=== PATIENT | female | born 1980 | race Caucasian/White ===

== ENCOUNTER 2020-03-23 03:12 | Observation (INO) | payer OTHER, SELFPAY ==
[2020-03-23] VITALS (25 sets, daily range): BP systolic 98–142; BP diastolic 55–87; PULSE 55–92; RESP 10–21; TEMP 36.4; O2SAT 94–100; BMI 39.6
--- NOTE | ~2020-03-23 | CT_ITS ---
EXAMINATION: CT abdomen pelvis w con DATE: 03/23/2020 04:26 INDICATION: Abdominal pain, nausea and vomiting TECHNIQUE: Computed tomography (CT) of the abdomen and pelvis was performed with 100 mL Omnipaque-350 intravenous contrast. Automated exposure control and iterative reconstruction technique were employe d. The dose-length product was 1290.19 mGy-cm. COMPARISON: 01/04/2017 FINDINGS: Lung bases are clear. Heart size is normal. No pericardial or pleural effusion. Focal hepatic steatos is at the ligamentum teres. Gallbladder, spleen, pancreas, bilateral adrenal glands and kidneys are n ormal. The appendix is fluid-filled and dilated to 9 mm with high density appendicolith in the more p roximal appendix. There is mild surrounding inflammatory stranding consistent with acute appendicitis . Minimal free fluid is seen extending along the right paracolic at the caudal tip of the liver. No a bscess or free intraperitoneal gas. Remainder of the bowels are normal. Bladder, anteverted uterus an d bilateral adnexa are unremarkable. No pathologically enlarged abdominal or pelvic lymphadenopathy. Mild lumbar and lower thoracic spondylosis. IMPRESSION: 1. Acute appendicitis. Dr. Emil White notified Dr. Keys of this findings at 4:52 AM on 03/23/2020. Reviewed, dictated and finalized at location A. CONTROL SUPERVISOR IMPRESSION: 1. Acute appendicitis. Dr. Emil White notified Dr. Keys of this findings at 4: 52 AM on 03/23/2020.
--- NOTE | 2020-03-23 03:15 | ED.ABDPAIN ---
HPI - Abdominal Pain General Chief Complaint: Abdominal Pain Stated Complaint: abdominal pain Time Seen by Provider: 03/23/20 03:15 Source: patient Mode of arrival: ambulatory Limitations: no limitations History of Present Illness HPI narrative: The patient is a 39 yo female who presents for evaluation of abdominal pain. Patient's pain began around midnight, mostly in center of the abdomen. Pain is now severe in nature with radiation into the right lower quadrant. She has had associated nausea and vomiting this morning. She denies fever, chills, diarrhea or constipation. No chest pain or dyspnea. No history of abdominal pain such as this. No history of abdominal surgeries. She denies dysuria or hematuria. Related Data Home Medications Medication Instructions Recorded Confirmed No Home Medications 03/23/20 03/23/20 Allergies Allergy/AdvReac Type Severity Reaction Status Date / Time TIDE DETERGENT Allergy Mild HIVES Uncoded 03/23/20 03:14 Review of Systems Review of Systems: Narrative: CONSTITUTIONAL: Denies fever, chills, or sweats. ENT: Denies rhinorrhea, congestion, sore throat, or otalgia. CARDIOVASCULAR: Denies chest pain, palpitations, or edema. RESPIRATORY: Denies cough or dyspnea. GASTROINTESTINAL: Reports abdominal pain, nausea and vomiting GENITOURINARY: Denies dysuria or hematuria. SKIN: Denies rash or itching. MUSCULOSKELETAL: Denies back pain, joint pain, or myalgia. NEUROLOGIC: Denies headache PMFSH Past Medical History Medical History Arthritis of left knee Patellar dislocation Social History Social History (Updated 03/23/20 @ 03:38 by Caridad Keys MD) Smoking status: Current every day smoker Tobacco type: cigarettes and e-cigarettes/vaping Substance use: never Gender identity (if verbalized by the patient): Female Exam Narrative: Exam Narrative: GENERAL: Awake, alert, conversant HEAD: Normocephalic, atraumatic. EYES: PERRLA and EOMI. ENT: Nares clear, no rhinorrhea or epistaxis. Mucous membranes moist. NECK: Supple. CHEST: No respiratory distress, breathing even and non labored HEART: Regular rate, sinus rhythm ABDOMEN:Obese, non distended, bowel sounds in all 4 quadrants, tender periumbilical area, positive right lower quadrant tenderness, no guarding, nonrigid EXTREMITIES: Normal range of motion. No edema. SKIN: Warm, dry, no rash. NEURO:No focal deficits. Alert and oriented x3 Course Vital Signs Vital signs: Vital Signs Temperature 36.4 C 03/23/20 03:20 Pulse Rate 74 03/23/20 03:20 Respiratory Rate 20 03/23/20 03:20 Blood Pressure 142/87 H 03/23/20 03:20 Pulse Oximetry 98 03/23/20 03:20 Temperature 36.4 C 03/23/20 03:20 Pulse Rate 74 03/23/20 03:20 Respiratory Rate 20 03/23/20 03:20 Blood Pressure 130/86 03/23/20 06:03 Pulse Oximetry 97 03/23/20 06:03 MDM - Abdominal Pain MDM Narrative Medical decision making narrative: Patient presented for evaluation of centralized abdominal pain, nausea and vomiting. At the time of assessment, ABCs are intact and vital signs are stable. Physical exam is notable for periumbilical tenderness as well as right lower quadrant tenderness. No rigidity. No guarding. No leukocytosis on laboratory studies. No electrolyte derangement. No UTI. CT scan is concerning for developing appendicitis with dilated appendix, stranding, appendicolith. No abscess or perforation. Patient was given IV Zosyn in the emergency department. Admitted to Dr. Latham with general surgery. Differential Diagnosis Differential diagnosis: Likely abdominal pain, acute appendicitis, diverticulitis, gastroenteritis and pancreatitis Lab Data Attestation: I reviewed the patient's lab results. Result diagrams: 03/23/20 03:26 03/23/20 03:26 Labs: Lab Results 03/23/20 03/23/20 03/23/20 Range/Units 03:26 03:26 04:59 WBC 6.2 (4.5-10.0) K/mm
[2020-03-23 03:30] LABS: Basophils Percent Auto 0.3 % (0.2-1.2); Eosinophils Absolute Auto 0.1 K/mm3 (0-0.3); Eosinophils Percent Auto 0.8 % (0-4.4); Hematocrit 41.6 % (37.0-47.0); Hemoglobin 13.6 g/dL (12.0-15.0); Immature Granulocyte Absolute 0.01 K/mm3 (0.00-0.031); Immature Granulocyte Percent A 0.2 % (0-0.5); Lymphocytes Percent Auto 30.6 % (18.3-44.2); Mean Corpuscular HGB Conc 32.7 g/dl (32-36); Mean Corpuscular Hemoglobin 26.5 pg (26-34); Mean Corpuscular Volume 80.9 fl (80-100); Mean Platelet Volume 9.5 fl (7.4-10.4); Monocytes Absolute Auto 0.1 K/mm3 (0.1-0.6); Monocytes Percent Auto 1.6 % (2.6-8.5); Neutrophils Absolute Auto 4.1 K/mm3 (1.3-6.7); Neutrophils Percent Auto 66.5 % (45.5-73.1); Platelet Count Result 273 k/mm3 (150-375); Red Blood Count 5.14 M/mm3 (4.2-5.4); Red Cell Distribution Width 14.7 % (11.5-14.5); White Blood Count 6.2 K/mm3 (4.5-10.0)
[2020-03-23 03:43] LABS: Alanine Aminotransferase 24 U/L (4-35); Albumin Level 4.3 g/dL (3.5-5.1); Alkaline Phosphatase 90 U/L (38-126); Anion Gap 9 mmol/L (8-16); Aspartate Amino Transferase 28 U/L (14-36); Bilirubin,Total 0.4 mg/dL (0.2-1.3); Blood Urea Nitrogen 7 mg/dL (7-17); Calcium 9.4 mg/dL (8.4-10.2); Carbon Dioxide 25 mmol/L (22-30); Chloride 103 mmol/L (98-107); Estimated CRCL calculation 163 ml/min; Estimated Glomerular Filt Rate > 60; Glucose 119 mg/dL (65-105); Lipase 48 U/L (23-300); Potassium 4.1 mmol/L (3.4-5.0); Sodium 137 mmol/L (137-145)
[2020-03-23] MEDS: DICYCLOMINE HCL INJ 20 MG/2 ML VIAL IM (03:43)
[2020-03-23] MEDS: ONDANSETRON INJ 4 MG/2 ML VIAL IV PUSH ×3 (03:44→10:43)
[2020-03-23] MEDS: SODIUM CHLORIDE 0.9% IV 1,000 ML 999 ML IV CONT (03:45)
[2020-03-23 05:18] LABS: Add Urine Microscopic? YES; Appearance Urine Clear (Clear); Bilirubin Urine Negative (Negative); Blood Urine 1+ (Negative); Color Urine Colorless (Yellow); Glucose Urine UA Negative (Negative); Ketones Urine Trace mg/dL (Negative); Leukocyte Esterase Ur Negative LEU/UL (Negative); Nitrate Urine Negative (Negative); Protein Urine Negative (Negative); Specific Grav Ur 1.027 (1.001-1.035); Squamous Epithelial Cell Urine Rare /hpf (Few); Urobilinogen Urine Negative mg/dL (<2.0); WBC Urine 0-3 /hpf
[2020-03-23] MEDS: SODIUM CHLORIDE 0.9% IV 1,000 ML 125 ML IV CONT (05:45)
[2020-03-23] MEDS: MORPHINE SULFATE (*CRX) 4 MG/ML INJ IV PUSH ×2 (06:00→08:12)
--- NOTE | 2020-03-23 06:43 | ADMGEN ---
This patient, Jeanne Gunter, was admitted to [facility]. Patient/family oriented to hospital policies and general routines including ID bracelet, bed and alarms, visiting hours, pain management, procedures, bathroom and other care routines, personal items, smoking policy, room service/diet, and visiting hours. Information on how to activate the Rapid Response Team has been discussed. Patient/Family are encouraged to report perceived risks to care and to ask questions if they do not understand what they are told or what they should do.
--- NOTE | 2020-03-23 06:57 | WPDANESEPP ---
Anes - Eval Pre Procedure Procedure: lap. appendectomy Date/Time: 03/23/20 06:57 Surgeon: daly Pre Op Diagnosis: Acute appendicitis Patient Data Age: 39 Gender: F Height: 1.7 m Weight: 115 kg Last Vital Signs Temp 36.4 C 03/23/20 03:20 Pulse 55 L 03/23/20 06:10 Resp 20 03/23/20 03:20 BP 130/86 03/23/20 06:03 Pulse Ox 97 03/23/20 06:03 Allergies Allergy/AdvReac Type Severity Reaction Status Date / Time TIDE DETERGENT Allergy Mild HIVES Uncoded 03/23/20 03:14 Home Medications Medication Instructions Recorded Confirmed Type No Home Medications 03/23/20 03/23/20 History Laboratory Tests 03/23/20 03/23/20 03/23/20 03:26 03:26 04:59 WBC 6.2 K/mm3 K/mm3 (4.5-10.0) RBC 5.14 M/mm3 M/mm3 (4.2-5.4) Hgb 13.6 g/dL g/dL (12.0-15.0) Hct 41.6 % % (37.0-47.0) MCV 80.9 fl fl (80-100) MCH 26.5 pg pg (26-34) MCHC 32.7 g/dl g/dl (32-36) RDW 14.7 % H % (11.5-14.5) Plt Count 273 k/mm3 k/mm3 (150-375) MPV 9.5 fl fl (7.4-10.4) Immature Gran % (Auto) 0.2 % % (0-0.5) Neut % (Auto) 66.5 % % (45.5-73.1) Lymph % (Auto) 30.6 % % (18.3-44.2) [place] % (Auto) 1.6 % L % (2.6-8.5) Eos % (Auto) 0.8 % % (0-4.4) Baso % (Auto) 0.3 % % (0.2-1.2) Lymph # (Auto) 1.90 K/mm3 K/mm3 (0.9-3.2) [place] # (Auto) 0.1 K/mm3 K/mm3 (0.1-0.6) Eos # (Auto) 0.1 K/mm3 K/mm3 (0-0.3) Baso # (Auto) 0.0 K/mm3 K/mm3 (0.0-0.1) Abs Immat Gran (auto) 0.01 K/mm3 K/mm3 (0.00-0.031) Absolute Neuts (auto) 4.1 K/mm3 K/mm3 (1.3-6.7) Absolute Nucleated RBC 0.0 K/mm3 K/mm3 (0.0-0.012) Nucleated RBC % 0.0 % % (0.0-0.2) Sodium 137 mmol/L mmol/L (137-145) Potassium 4.1 mmol/L mmol/L (3.4-5.0) Chloride 103 mmol/L mmol/L (98-107) Carbon Dioxide 25 mmol/L mmol/L (22-30) Anion Gap 9 mmol/L mmol/L (8-16) BUN 7 mg/dL mg/dL (7-17) Creatinine 0.50 mg/dL L mg/dL (0.7-1.0) Estim Creat Clear Calc 163 ml/min ml/min Estimated GFR > 60 (59 - ) Glucose 119 mg/dL H mg/dL (65-105) Calcium 9.4 mg/dL mg/dL (8.4-10.2) Total Bilirubin 0.4 mg/dL mg/dL (0.2-1.3) AST 28 U/L U/L (14-36) ALT 24 U/L U/L (4-35) Alkaline Phosphatase 90 U/L U/L (38-126) Total Protein 8.0 g/dL g/dL (6.3-8.2) Albumin 4.3 g/dL g/dL (3.5-5.1) Lipase 48 U/L U/L (23-300) Urine Color Colorless (Yellow) Urine Appearance Clear (Clear) Urine pH 7.0 (5.0-9.0) Ur Specific [place] 1.027 (1.001-1.035) Urine Protein Negative mg/dL mg/dL (Negative) Urine Glucose (UA) Negative mg/dL mg/dL (Negative) Urine Ketones Trace mg/dL mg/dL (Negative) Ur Blood (Man) 1+ H (Negative) Urine Nitrate Negative (Negative) Urine Bilirubin Negative (Negative) Urine Urobilinogen Negative mg/dL mg/dL (<2.0) Leukocyte Esterase Rfl Negative LYNDA/UL LYNDA/UL (Negative) Urine RBC 3-5 /hpf H /hpf (0-2) Urine WBC 0-3 /hpf /hpf Ur Squamous Epith Cells Rare /hpf /hpf (Few) Patient hx anesthesia problems: none Family hx anesthesia problems: none PMFSH Past Medical History Medical History Arthritis of left knee Patellar dislocation Family History Family History (Updated 03/23/20 @ 06:45 by Susan Hooper RN) Father Cerebrovascular accident COPD (chronic obstructive pulmonary disease) Mother Cancer, metastatic Social History Social History (Updated 03/23/20 @ 03:38 by Caridad Keys MD) Smoking status: C
--- NOTE | 2020-03-23 07:47 | P.PNAN_ITS ---
Anes - Eval Final PreProcedure Day of Procedure 03/23/20 07:47 Patient weight: obese Heart: regular rate and rhythm Lungs: clear to auscultation and normal air movement Airway: Mallampati scale class II Neurological: alert and oriented Last oral intake: >/= 8 hours ASA classification: III Emergent: yes Anesthetic plan: proceed Anesthesia type and monitoring: general ETT Informed Consent: The patient's anesthetic plan and its attendant risks and b enefits were discussed with the patient/family/POA. Questions were solicited and answers provided to the satisfaction of the patient/family/POA.
[2020-03-23] MEDS: MORPHINE SULFATE (*CRX) 2 MG/ML INJ 4 MG ×2 (08:18→10:42)
[2020-03-23] MEDS: LACTATED RINGERS 1,000 ML 30 ML IV CONT ×2 (10:39→12:36)
--- NOTE | 2020-03-23 10:40 | PM.IMHP ---
H&P: HPI History of Present Illness Date/Time: 03/23/20 10:40 Chief complaint: Acute appendicitis Narrative: Jaenne Gunter is a 39 year old female Who presented to the emergency department this morning with right lower quadrant in generalized abdominal pain. Her pain started about 12:30 a.m. this morning. Yesterday she was feeling fine and had no complaints. She has never had problems like this in the past. She felt somewhat flushed and feverish but denied having an elevated temperature. She has also had some nausea associated with this but no change in bowel habits. Review of Systems Review of Systems: All systems reviewed & are unremarkable except as noted in HPI and below Eyes: Eyes: Denies change in vision ENT: Denies hearing loss, Denies neck pain and Denies sore throat Cardiovascular: Cardiovascular: Denies chest pain and Denies dyspnea Respiratory: Respiratory: Denies cough, Denies dyspnea and Denies wheezing Gastrointestinal: Gastrointestinal: Reports as per HPI Genitourinary: Genitourinary: Denies hematuria and Denies dysuria Musculoskeletal: Musculoskeletal: Denies arthralgias, Denies joint swelling and Denies neck pain Allergic/Immunologic: Allergic/Immunologic: Denies wheezing PMFSH Past Medical History Medical History (Updated 03/23/20 @ 10:44 by Mark Latham DO) Arthritis of left knee Patellar dislocation Surgical History Surgical History (Updated 03/23/20 @ 10:42 by Mark Latham DO) History of knee surgery Family History Family History Father Cerebrovascular accident COPD (chronic obstructive pulmonary disease) Mother Cancer, metastatic Social History Social History Smoking status: Current every day smoker Tobacco type: e-cigarettes/vaping Alcohol intake: current Drinks per week: 5 Substance use: never Substance use type: does not use Gender identity (if verbalized by the patient): Female Sexual Orientation (if Verbalized by the Patient): Lesbian, Castillo, or Homosexual Spiritual care concerns: No Meds Home Medications and Allergies Home Medications Medication Instructions Recorded Confirmed Type No Home Medications 03/23/20 03/23/20 History Allergies Allergy/AdvReac Type Severity Reaction Status Date / Time TIDE DETERGENT Allergy Mild HIVES Uncoded 03/23/20 03:14 Vital Signs Vital Signs - 24 hr 03/23/20 03:20 03/23/20 03:52 03/23/20 03:53 Temperature 36.4 C Pulse Rate 74 Respiratory Rate 20 Blood Pressure 142/87 H 112/63 Pulse Oximetry 98 97 97 03/23/20 03:54 03/23/20 04:17 03/23/20 04:30 Temperature Pulse Rate Respiratory Rate Blood Pressure Pulse Oximetry 95 99 96 03/23/20 04:45 03/23/20 05:01 03/23/20 05:15 Temperature Pulse Rate Respiratory Rate Blood Pressure Pulse Oximetry 96 97 98 03/23/20 05:32 03/23/20 05:45 03/23/20 06:00 Temperature Pulse Rate Respiratory Rate Blood Pressure Pulse Oximetry 94 97 96 03/23/20 06:03 03/23/20 06:10 03/23/20 07:48 Temperature 36.4 C Pulse Rate 55 L 70 Respiratory Rate 14 Blood Pressure 130/86 138/72 Pulse Oximetry 97 96 Exam Const: General: alert; No acute distress Orientation/consciousness: patient oriented x3 Limitations: no limitations HENMT: Head: normocephalic and atraumatic Ears: hearing grossly normal bilaterally General nose exam: Normal external nose present and Normal nares present Mouth: Yes Normal oral and palatal mucosa present and Yes moist mucous membranes Eyes: General: appearance normal, both eyes and all related structures Conjunctivae: conjunctivae normal Sclera: sclerae normal Pupils: Equal, round and reactive pupils present EOM: EOMs intact bilaterally Neck: Neck: normal visual inspection, full ROM, no lymphadenopathy, supple and no JVD Lymphatic: no
--- NOTE | 2020-03-23 10:46 | WPDHPUPDATE1 ---
History and Physical Update Update Date/Time: 03/23/20 10:46 History and Physical has been reviewed, including an updated exam of the patient. There are NO changes in the patient's condition. Risks, benefits, and alternatives have been discussed and questions answered. Patient agrees to proceed with procedure.
[2020-03-23] MEDS: BUPIVACAINE/EPINEPHRINE 0.25% 10 ML VIAL 30 ML INFILTRATE (12:04)
--- NOTE | 2020-03-23 12:38 | PM.PROC ---
Procedure Note - Detailed Date of procedure: 03/23/20 Pre-op diagnosis: Acute appendicitis Post-op diagnosis: same Procedure performed: Laparoscopic Appendectomy Description of procedure: Procedure as well as risks, benefits, and alternatives were explained to the patient. The patient agreed to proceed. Written consent was obtained and placed in chart prior to procedure. The patient was brought back to surgical suite. She was placed supine on operating table. Time-out was done to confirm the patient and procedure. The patient was then intubated by the Anesthesia Department. her abdomen was prepped and draped in sterile fashion using chlorhexidine prep. A 5 mm incision was made just to the left of the patient's umbilicus and a 5 mm Optiview trocar was advanced through the abdominal layers under direct visualization. Once inside the peritoneal cavity, carbon dioxide insufflation was used to create a pneumoperitoneum. The camera was inserted and the abdomen was inspected. No immediate abnormalities were identified. The patient was then placed in slight Trendelenburg position and rotated to the left. A 5 mm incision was made in the suprapubic region in midline and a 5 mm trocar was inserted under direct visualization. A 12 mm incision was made in the left lower quadrant and a 12 mm trocar was inserted under direct visualization. The right lower quadrant was carefully inspected. The cecum was identified and then this was traced back to the appendix. The appendix was identified and grasped at the mesoappendix and lifted anteriorly. Careful blunt dissection was carried out at the base of the appendix through the mesoappendix using a [place] grasper. An Endo-BRIDGER 45 mm blue load stapler was then advanced across the base of the appendix and clamped and fired. A white reload was then clamped across the mesoappendix and fired. This freed up our appendix completely. It was then placed in an EndoCatch bag and removed through the left lower quadrant port. The staple lines were then inspected. Hemostasis appeared adequate and the staple lines appeared secure. The area was then irrigated with sterile saline. The pelvis was then carefully inspected and irrigated with sterile saline as well and the remainder of the abdomen was carefully inspected. The patient was then flattened out in bed. One final inspection was made around the abdominal cavity and no other abnormalities were seen. The left lower quadrant port was removed and a Nash-Jose F cone was used to approximate the fascia with a 0 Vicryl simple interrupted suture. The remaining ports were then removed under direct visualization. The camera was removed and the pneumoperitoneum was released. 0.5% bupivacaine with epinephrine was infiltrated locally around each of the incisions. The skin of the incisions was then approximated using 4-0 Monocryl subcuticular suture and Exofin glue was applied on top. The patient was then awakened from anesthesia, extubated, and transferred to Recovery. Anesthesia: GETA and local (0.5% bupivicaine with epi) Surgeon: Mark Latham DO Estimated blood loss (mL): 5 Pathology: yes (Appendix) Complications: No immediate complications Condition: stable Disposition: floor Findings: this is a 39-year-old woman who presented to the emergency department this morning with right lower quadrant pain that started around midnight last night. She has had worsened pain throughout the night and into the morning. Her white blood count was normal, but CT showed evidence of acute appendicitis. She was admitted to the hospital and started on IV Zosyn. Discussions were made with the patient about treatment options and decision was made to proceed with laparoscopic appendectomy, possible open. Laparoscopic appendectomy was performed. The appendix appeared dilated and inflamed, but there was no evidence of perforation or abscess. The base of the appendix appeared healthy and viab
[2020-03-23] MEDS: HYDROcodone/acetaminophen (*CRX) 5-325 MG TABLET 1 TAB PO (13:51)
[2020-03-23] MEDS: MORPHINE SULFATE (*CRX) 2 MG/ML INJ 4 MG IV PUSH (15:48)
--- NOTE | 2020-03-23 19:23 | PC.NURSE ---
1715-pt given D/C orders and instructions. Able to void twice before leaving and was able to walk around the unit with minimal assistance. Questions answered and verbalized understanding. AOx4. PIV removed. Taken via wheelchair to waiting vehicle. No distress noted or verbalized at time of D/C.
--- NOTE | 2020-03-28 11:49 | PM.DS ---
DS: Admitting Diagnosis Admitting Diagnosis Admitting Diagnosis: Acute appendicitis DS: Discharge Diagnosis Discharge Diagnosis (1) Acute appendicitis: Qualifiers: Acute appendicitis type: with generalized peritonitis Appendicitis abscess presence: unspecified whether abscess present Appendicitis gangrene presence: unspecified whether gangrene present Appendicitis perforation presence: unspecified whether perforation present Qualified Code(s): K35.20 - Acute appendicitis with generalized peritonitis, without abscess Code(s): K35.80 - Unspecified acute appendicitis Status: Acute (2) BMI 39.0-39.9,adult: Code(s): Z68.39 - Body mass index [BMI] 39.0-39.9, adult Status: Acute DS: Summary Hospital Course Reason for hospitalization: acute appendicitis Hospital Course: this is a 39-year-old woman admitted to the hospital with findings of acute appendicitis. She was evaluated in the emergency department for right lower quadrant abdominal pain. CT confirmed acute appendicitis. She was admitted and placed on broad-spectrum IV antibiotics. She underwent laparoscopic appendectomy that morning and was then returned to the surgical floor postoperatively. The appendix did not appear perforated. Her diet and activity were advanced as tolerated. After tolerating a regular diet, her pain was controlled and her vitals remained stable. She was discharged on 03/23/2020. Status at Discharge Functional status at discharge: independent ambulation Overall status at discharge: patient is progressing back to baseline Time Spent with Patient Time attestation: Total time spent providing and/or coordinating discharge services: Time spent: Less than 30 minutes Exam GI: Inspection: incision ( Intact with glue) GI Palp: Yes Soft to palpation DS: Data Data Completed and Pending Completed studies during hospitalization: Pending at discharge 03/23/20 12:20 Surgical [PTH] Routine Imaging Radiologist's impression: ITS Impressions Abdomen/Pelvis CT 03/23/20 10:39 IMPRESSION: 1. Acute appendicitis. Dr. Emil White notified Dr. Keys of this findings at 4:52 AM on 03/23/2020. Discharge Plan Discharge Attending physician on discharge: Mark Hankins Consulting providers: Raul Mcdowell Paul Discharging Clinician: Mark Hankins Patient Disposition: Home, Self-Care Activity: other - see discharge instructions Diet: other - see discharge instructions Wound Care Instructions: other - see discharge instructions Discharge Instructions: DISCHARGE INSTRUCTION SHEET FOR HERNIA, GALLBLADDER AND APPENDIX SURGERIES DR. HANKINS PATIENT TO TAKE HOME 1. May shower in 24 hours, no soaking in bath x 2weeks. 2. Call office for: Wound increasingly painful or bleeding Vomiting Fever of greater than 101 degrees 3. If no bowel movement for three days, take 1 oz. (30 ml) Milk of Magnesia or MiraLax 17g 1 to 2 times daily. 4. No heavy lifting > 10-15 pounds x weeks for hernia repairs and 2 weeks for laparoscopic cholecystectomy or appendectomy. 5. No driving for 3 days or while taking narcotic pain medications. 6. Ice to surgical site for 48 hours (30 min on, then 30 min off). 7. Up walking 10-30 minutes three times per day. 8. Resume previous home medications. 9. Follow-up 10-14 days in office for wound check or as previously scheduled. ([phone]) 10. Oral pain medications prescription to be sent to pharmacy. Take Tylenol 500mg every 6 hours and Ibuprofen 600mg every 6 hours for the first 2 days, then as needed. 11. NUTRITION: Start out by drinking fluids and increase your diet as tolerated. If you experience nausea, try dry toast, crackers, and 7-UP. If nausea or vomiting persists, contact your surgeon?s office. 12. Gallbladders-Low Fat Diet for 2 weeks (send care note of low f
== END 2020-03-23 17:15 | disposition home or self-care (01) ==
LOC: ANHED 05:14 → ANHCPC 06:12
PROVIDERS: Admitting Provider Surgery; Emergency Provider Emergency Medicine; Visit Provider Surgery
PROC: 0DTJ4ZZ Resection of Appendix, Percutaneous Endoscopic Approach (ICD-10-PCS; CPT 44970; principal; 2020-03-23)
DX: K35.20 Acute appendicitis with generalized peritonitis, without abscess (principal); F17.210 Nicotine dependence, cigarettes, uncomplicated; E66.9 Obesity, unspecified; Z68.39 Body mass index [BMI] 39.0-39.9, adult
CPT/HCPCS: 44970; 36415; 74177; 80053; 81001; 83690; 85025; 88304; 96361; 96365; 96372; 96375; 96376; 99285; A9270; G0378; G0379; J0131; J0330; J0500; J1100; J2270; J2405; J2543; J2704; J3010; J7030; J7120; Q9967

== ENCOUNTER 2020-06-26 15:46 | Emergency (ER) | payer OTHER, SELFPAY ==
--- NOTE | 2020-06-26 15:51 | ED.LOWEXIN ---
HPI - Extremity Injury (Lower) General Chief Complaint: Extremity Injury, Lower Stated Complaint: left 1st didit toe swollen/painful Time Seen by Provider: 06/26/20 16:05 Source: patient and RN notes reviewed Mode of arrival: ambulatory Limitations: no limitations History of Present Illness HPI Narrative: 40-year-old female presents with concern for blisterlike growths on the first digit of her left foot. Reports the growth has been there for many months, she had one drained in January. Reports they have worsened in the last several days. Reports swelling, pain when she puts her shoes on or walks. She denies any redness, fever, drainage, general malaise. Denies any intervention. Related Data Home Medications Medication Instructions Recorded Confirmed No Home Medications 03/23/20 04/18/20 Allergies Allergy/AdvReac Type Severity Reaction Status Date / Time TIDE DETERGENT Allergy Mild HIVES Uncoded 06/26/20 16:13 Review of Systems Review of Systems: Narrative: CONSTITUTIONAL: Denies malaise, chills, sweats, or fever. SKIN: Reports painful blisterlike growths on the first digit of the left foot MUSCULOSKELETAL: Denies musculoskeletal pain NEUROLOGIC: Denies numbness, weakness All systems reviewed & are unremarkable except as noted in HPI and below PMFSH Past Medical History Medical History Arthritis of left knee Patellar dislocation Surgical History Surgical History History of knee surgery History of laparoscopic appendectomy 03/23/20 Family History Family History Father Cerebrovascular accident COPD (chronic obstructive pulmonary disease) Mother Cancer, metastatic Social History Social History Smoking status: Current every day smoker Tobacco type: e-cigarettes/vaping Alcohol intake: current Drinks per week: 5 Substance use: never Substance use type: does not use Gender identity (if verbalized by the patient): Female Spiritual care concerns: No Comments At time of signature, agree with nursing past medical, surgical, social and family history. There is no relevant family history pertinent to the presenting complaint Exam Narrative: Exam Narrative: GENERAL: Well-appearing, well-nourished, and in no acute distress. HEAD: Normocephalic, atraumatic. EYES: PERRLA, conjunctivae clear ENT: Mucous membranes moist. NECK: Supple. No lymphadenopathy CHEST: Clear to auscultation. No respiratory distress. HEART: Regular rate and rhythm. MUSCULOSKELATAL: First digit of left foot has grossly normal strength, sensation, range of motion SKIN: Warm, dry. 3 large blisters filled with apparently clear fluid noted to the medial aspect of the distal end of the first digit of the left foot, tender to touch without surrounding erythema, induration or edema. NEURO: Alert and oriented x3. PSYCH: Normal mood and affect Course Course Emergency Course: Patient is aware of diagnosis, understands and agrees to treatment plan. Anticipatory guidance given. Patient agrees to follow-up as directed and is aware of reasons to seek care at the emergency department. Portions of this record may have been created with voice recognition software Vital Signs Vital signs: Vital Signs Temperature 97.4 F L 06/26/20 16:01 Pulse Rate 64 06/26/20 16:01 Respiratory Rate 16 06/26/20 16:01 Blood Pressure 133/80 06/26/20 16:01 Pulse Oximetry 100 06/26/20 16:01 Temperature 97.4 F L 06/26/20 16:01 Pulse Rate 64 06/26/20 16:01 Respiratory Rate 16 06/26/20 16:01 Blood Pressure 133/80 06/26/20 16:01 Pulse Oximetry 100 06/26/20 16:01 Reviewed. Procedures Abscess I/D foot: Date of Incision: 06/26/20 Time of Incision: 16:15 Side (if applicable):
[2020-06-26 16:01] VITALS: BP 133/80; PULSE 64; RESP 16; TEMP 36.3; O2SAT 100
== END 2020-06-26 16:45 | disposition home or self-care (01) ==
PROVIDERS: Emergency Provider Nurse Practitioner
DX: L02.612 Cutaneous abscess of left foot (principal); F17.200 Nicotine dependence, unspecified, uncomplicated; M17.12 Unilateral primary osteoarthritis, left knee
CPT/HCPCS: 10060; 87070; 87075; 87205; 99212; G0463

== ENCOUNTER 2020-09-10 10:14 | Emergency (ER) | payer OTHER, SELFPAY ==
--- NOTE | ~2020-09-10 | XR_ITS ---
EXAMINATION: XR shoulder RT min 2V DATE: 09/10/2020 10:47 INDICATION: Right shoulder pain. Fall. TECHNIQUE: 4 views of right shoulder were obtained. COMPARISON: None. FINDINGS: Bone alignment is normal. No fracture. Glenohumeral joint is normal. There is moderate acro mioclavicular joint osteoarthritis. IMPRESSION: 1. Moderate acromioclavicular joint osteoarthritis. Reviewed, dictated and finalized at location A.
[2020-09-10 10:24] VITALS: BP 130/75; PULSE 80; RESP 16; TEMP 36.5; O2SAT 100
[2020-09-10] MEDS: IBUPROFEN 600 MG TABLET PO (10:37)
--- NOTE | 2020-09-10 11:45 | ED.GENADULT ---
HPI - General Adult General Chief complaint: Extremity Injury, Upper Stated complaint: fall, R shoulder pain Time Seen by Provider: 09/10/20 10:16 Source: patient and RN notes reviewed Mode of arrival: ambulatory Limitations: no limitations History of Present Illness HPI narrative: Patient is a 40-year-old female who presents with right shoulder pain after slipping and falling onto the right shoulder this morning noting aching pain to the shoulder denies other injuries or complaints has not taken anything for pain presents private vehicle in no distress does not appear uncomfortable Related Data Allergies Allergy/AdvReac Type Severity Reaction Status Date / Time TIDE DETERGENT Allergy Mild HIVES Uncoded 06/26/20 16:13 Review of Systems Review of Systems: All systems reviewed & are unremarkable except as noted in HPI and below PMFSH Past Medical History Medical History Arthritis of left knee Patellar dislocation Surgical History Surgical History History of knee surgery History of laparoscopic appendectomy 03/23/20 Family History Family History Father Cerebrovascular accident COPD (chronic obstructive pulmonary disease) Mother Cancer, metastatic Social History Social History Smoking status: Current every day smoker Tobacco type: e-cigarettes/vaping Alcohol intake: current Drinks per week: 5 Substance use: never Substance use type: does not use Gender identity (if verbalized by the patient): Female Spiritual care concerns: No Exam Narrative: Exam Narrative: GENERAL: Well-appearing, obese, and in no acute distress. HEAD: Normocephalic, atraumatic. EYES: PERRLA and EOMI. ENT: Nares clear, no rhinorrhea or epistaxis. Mucous membranes moist. NECK: Supple. No adenopathy or masses. CHEST: Clear to auscultation. No respiratory distress. No wheezes rales or rhonchi HEART: Regular rate and rhythm. No murmur heard. Normal peripheral pulses. EXTREMITIES: Normal range of motion. No edema. Tenderness of the right shoulder anteriorly no deformities noted. No cervical spine tenderness to palpation SKIN: Warm, dry, no rash. NEURO: No focal deficits. Alert and oriented x3. Cranial nerves II through XII grossly intact. Neurovascularly intact PSYCH: Normal mood and affect. Course Course Emergency Course: Patient evaluated emergency department no high risk changes in the evaluation will be discharged home with outpatient follow-up x-rays were reviewed with patient Vital Signs Vital signs: Vital Signs Temperature 97.7 F 09/10/20 10:24 Pulse Rate 80 09/10/20 10:24 Respiratory Rate 16 09/10/20 10:24 Blood Pressure 130/75 09/10/20 10:24 Pulse Oximetry 100 09/10/20 10:24 Temperature 97.7 F 09/10/20 10:24 Pulse Rate 80 09/10/20 10:24 Respiratory Rate 16 09/10/20 10:24 Blood Pressure 130/75 09/10/20 10:24 Pulse Oximetry 100 09/10/20 10:24 Medical Decision Making MDM Narrative Medical decision making narrative: Patients injury or pain is consistent with musculoskeletal etiology. No signs of neurological or vascular compromise on exam. Compartments and tisues are soft without signs of compartment syndrome. Pain is felt appropriate for further evaluation on an outpatient basis. Vital Signs Vital Signs: Vital Signs Temperature 97.7 F 09/10/20 10:24 Pulse Rate 80 09/10/20 10:24 Respiratory Rate 16 09/10/20 10:24 Blood Pressure 130/75 09/10/20 10:24 Pulse Oximetry 100 09/10/20 10:24 Temperature 97.7 F 09/10/20 10:24 Pulse Rate 80 09/10/20 10:24 Respiratory Rate 16 09/10/20 10:24 Blood Pressure 130/75 09/10/20 10:24 Pulse Oximetry 100 09/10/20 10:24 Imaging Data Radiologist's impression: ITS Impressi
[2020-09-10 12:02] VITALS: BP 132/68; PULSE 78; RESP 16; O2SAT 99
== END 2020-09-10 12:03 | disposition home or self-care (01) ==
PROVIDERS: Emergency Provider Family Medicine
DX: M25.511 Pain in right shoulder (principal)
CPT/HCPCS: 73030; 99283; A9270

== ENCOUNTER 2020-09-12 12:42 | Outpatient (CLI) | payer OTHER, SELFPAY ==
[2020-09-15 05:35] LABS: Ionized Calcium 4.8 mg/dL (4.8-5.6)
== END 2020-09-12 12:43 | disposition home or self-care (01) ==
LOC: ANHLAB 12:43
PROVIDERS: PCP Nurse Practitioner Family; Visit Provider Nurse Practitioner Family
DX: Z87.81 Personal history of (healed) traumatic fracture (principal)
CPT/HCPCS: 36415; 82330

== ENCOUNTER 2021-10-02 12:23 | Emergency (ER) | payer OTHER, SELFPAY ==
--- NOTE | ~2021-10-02 | XR_ITS ---
EXAMINATION: XR tibia fibula LT 2V INDICATION: Left leg pain TECHNIQUE: Two views of the left tibia and fibula are obtained. COMPARISON: 03/19/2014 FINDINGS: There is a healed fracture of the proximal fibula. No acute fracture is identified. There i s soft tissue swelling near the lateral malleolus. Moderate osteoarthritis is noted at the knee. IMPRESSION: 1. No acute osseous abnormality. Reviewed, dictated and finalized at location F.
[2021-10-02 13:00] VITALS: BP 137/74; PULSE 83; RESP 15; TEMP 36.5; O2SAT 100
--- NOTE | 2021-10-02 13:54 | PC.NURSE ---
EDP at bedside to assess pt.
--- NOTE | 2021-10-02 14:13 | ED.LOWEXIN ---
HPI - Extremity Injury (Lower) General Chief Complaint: Extremity Injury, Lower Stated Complaint: leg pain Time Seen by Provider: 10/02/21 13:06 History of Present Illness HPI Narrative: 31-year-old female presents to the emergency room for evaluation of left lower extremity pain. Patient states that she tripped and fell striking her left knee on a concrete stair. Injury occurred 5 days ago. Patient states that she has noticed significant amount of soft tissue swelling, tenderness and ecchymosis to the left anterior gomez. Patient has been ambulatory following the event. Related Data Allergies Allergy/AdvReac Type Severity Reaction Status Date / Time TIDE DETERGENT Allergy Mild HIVES Uncoded 06/26/20 16:13 Review of Systems Review of Systems: CONSTITUTIONAL: Denies fever, chills, or sweats. EYES: Denies visual changes, redness, or discharge. ENT: Denies rhinorrhea, congestion, sore throat, or otalgia. CARDIOVASCULAR: Denies chest pain, palpitations, or edema. RESPIRATORY: Denies cough or dyspnea. GASTROINTESTINAL: Denies abdominal pain, nausea, vomiting, or diarrhea. GENITOURINARY: Denies dysuria or hematuria. SKIN: Denies rash or itching. MUSCULOSKELETAL: Reports left lower extremity pain NEUROLOGIC: Denies headache, numbness, dizziness, or weakness. PSYCHIATRIC: Denies anxiety or depression. [facility] Past Medical History Medical History Arthritis of left knee Patellar dislocation Surgical History Surgical History History of knee surgery History of laparoscopic appendectomy 03/23/20 Family History Family History Father Cerebrovascular accident COPD (chronic obstructive pulmonary disease) Mother Cancer, metastatic Social History Social History Smoking status: Current every day smoker Tobacco type: e-cigarettes/vaping Alcohol intake: current Drinks per week: 5 Substance use: never Substance use type: does not use Gender identity (if verbalized by the patient): Female Sexual Orientation (if Verbalized by the Patient): Lesbian, Castillo, or Homosexual Spiritual care concerns: No Exam Narrative: GENERAL: Well-appearing, well-nourished, and in no acute distress. HEAD: Normocephalic, atraumatic. EYES: PERRLA and EOMI. CHEST: Clear to auscultation. No respiratory distress. No wheezes rales or rhonchi HEART: Regular rate and rhythm. No murmur heard. Normal peripheral pulses. ABDOMEN: Soft, nontender, nondistended, normal active bowel sounds. EXTREMITIES: Left leg: Tenderness to the anterior lower leg, over the proximal tibia with surrounding soft tissue swelling; ecchymosis noted to the tibia and into the left ankle, distal pulses present. No obvious bony abnormality SKIN: Warm, dry, no rash. NEURO: No focal deficits. Alert and oriented x3. PSYCH: Normal mood and affect. Course Vital Signs Vital signs: Vital Signs Temperature 36.5 C 10/02/21 13:00 Pulse Rate 83 10/02/21 13:00 Respiratory Rate 15 10/02/21 13:00 Blood Pressure 137/74 10/02/21 13:00 Pulse Oximetry 100 10/02/21 13:00 Oxygen Delivery Room Air 10/02/21 13:00 Temperature 36.5 C 10/02/21 13:00 Pulse Rate 83 10/02/21 13:00 Respiratory Rate 15 10/02/21 13:00 Blood Pressure 137/74 10/02/21 13:00 Pulse Oximetry 100 10/02/21 13:00 Oxygen Delivery Room Air 10/02/21 13:00 MDM - Extremity Injury (Lower) Imaging Data Radiologist's impression: Impressions Tibia/Fibula X-Ray 10/02/21 14:13 IMPRESSION: 1. No acute osseous abnormality. Discharge Plan Discharge Clinical Impression: Contusion of left lower extremity Patient Disposition: Home, Self-Care Condition: Stable Instructions: Antibiotic Form Prescriptions: No Action ibuprofen [IB
== END 2021-10-02 15:38 | disposition home or self-care (01) ==
PROVIDERS: Emergency Provider Nurse Practitioner Family; PCP Nurse Practitioner Family
DX: S80.12XA Contusion of left lower leg, initial encounter (principal); M17.12 Unilateral primary osteoarthritis, left knee; F17.290 Nicotine dependence, other tobacco product, uncomplicated; W01.198A Fall on same level from slipping, tripping and stumbling with subsequent striking against other object, initial encounter
CPT/HCPCS: 73590; 99283

== ENCOUNTER 2023-08-07 15:43 | Emergency (ER) | payer OTHER, SELFPAY ==
--- NOTE | ~2023-08-07 | XR_ITS ---
EXAM: [id number]_[id number] DATE: 08/07/2023 17:03 HISTORY: additional sunrise view . COMPARISON: X-ray knee, same date. FINDINGS: Degenerative changes in the patellofemoral compartment. No fracture. Moderate lateral subl uxation of the patella. IMPRESSION: Lateral patellar subluxation without definite fracture. Reviewed, dictated and finalized at location K.
--- NOTE | ~2023-08-07 | XR_ITS ---
EXAM: XR knee LT 3V DATE: 08/07/2023 16:22 HISTORY: fell 2 days ago, heard pain, medial pain, hx of prev sx/inj . COMPARISON: 10/02/2021. FINDINGS: Decreased mineralization. Moderate tricompartmental osteoarthritis. Old healed fibular fra cture. Old medial condylar fracture fragment. Old healed lateral condylar fracture fragment. Vertical lucency in the patella. Moderate joint effusion. IMPRESSION: Possible vertically oriented patellar fracture, correlate with pain/tenderness and consid er a sunrise view of the knee. Reviewed, dictated and finalized at location K. IMPRESSION: Possible vertically oriented patellar fracture, correlate with pain /tenderness and consider a sunrise view of the knee.
[2023-08-07 15:54] VITALS: BP 119/65; PULSE 93; RESP 19; TEMP 36.5; O2SAT 99
--- NOTE | 2023-08-07 16:21 | ED.GENADULT ---
HPI - General Adult General Chief complaint: Extremity Injury, Lower Stated complaint: fall/knee injury Time Seen by Provider: 08/07/23 15:50 History of Present Illness HPI narrative: 43-year-old female presented to the emergency department for evaluation of left knee pain. Patient states the feeding is ago she was at an outside hospital when she slipped in the elevator on a wet floor causing her to do this but. Patient states that she did injure her left groin and left knee. Patient denies striking head denies loss consciousness. Related Data Home Medications Medication Instructions Recorded Confirmed escitalopram oxalate 20 mg tablet 20 mg PO DAILY 12/02/21 12/03/21 (Lexapro) Allergies Allergy/AdvReac Type Severity Reaction Status Date / Time TIDE DETERGENT Allergy Mild HIVES Uncoded 08/07/23 15:59 Review of Systems Review of Systems: All systems reviewed & are unremarkable except as noted in HPI and below PMFSH Past Medical History Medical History Arthritis of left knee High cholesterol Patellar dislocation Surgical History Surgical History H/O LEEP 10/28/2020 - [facility] History of colposcopy 10/03/2020 History of knee surgery History of laparoscopic appendectomy 03/23/20 Family History Family History Father Cerebrovascular accident COPD (chronic obstructive pulmonary disease) Mother Cancer, metastatic Social History Social History Smoking status: Current every day smoker Tobacco type: e-cigarettes/vaping Alcohol intake: current Drinks per week: 5 Substance use: current Substance use type: marijuana Living arrangements: with family Occupation/Education: occupation 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 HEAD: normocephalic, atraumatic. EYES: PERRLA/EOMI, conjunctivae clear. NECK: Supple. No adenopathy, no masses. RESPIRATORY: Airway patent, respirations nonlabored. Clear to auscultation bilaterally, no rales, rhonchi, wheezing. CARDIOVASCULAR: Regular rate and rhythm without murmurs rubs or gallops. ABDOMINAL: Soft, nontender, nondistended, normal bowel sounds MUSCULOSKELETAL: Effusion and contusion with ecchymosis to left knee, no deformity NEURO: Alert. Cranial nerves II through XII intact. Grossly intact Course Vital Signs Vital signs: Vital Signs Temperature 97.7 F 08/07/23 15:54 Pulse Rate 93 08/07/23 15:54 Respiratory Rate 19 08/07/23 15:54 Blood Pressure 119/65 08/07/23 15:54 Pulse Oximetry 99 08/07/23 15:54 Oxygen Delivery Room Air 08/07/23 15:54 Temperature 97.7 F 08/07/23 15:54 Pulse Rate 93 08/07/23 15:54 Respiratory Rate 19 08/07/23 15:54 Blood Pressure 119/65 08/07/23 15:54 Pulse Oximetry 99 08/07/23 15:54 Oxygen Delivery Room Air 08/07/23 15:54 Medical Decision Making MDM Narrative Medical decision making narrative: 43-year-old female presents emergency department for evaluation of left knee pain. X-rays were negative for acute fracture dislocation. Patient does have prior history of patellar injury. Patient was placed in a knee immobilizer and patient has crutches for limited weight-bearing. Patient was provided outpatient follow-up with Orthopedics. All questions and concerns were addressed patient was well-appearing at time of discharge. Differential Diagnosis Differential Diagnosis: Patellar fracture, patellar dislocation, internal derangement knee, knee contusion, knee effusion Vital Signs Vital Signs: Vital Signs
== END 2023-08-07 18:01 | disposition home or self-care (01) ==
PROVIDERS: Emergency Provider Emergency Medicine; PCP Nurse Practitioner Family
DX: S80.02XA Contusion of left knee, initial encounter (principal); S83.012A Lateral subluxation of left patella, initial encounter; E78.00 Pure hypercholesterolemia, unspecified; M17.12 Unilateral primary osteoarthritis, left knee; F17.290 Nicotine dependence, other tobacco product, uncomplicated; W01.0XXA Fall on same level from slipping, tripping and stumbling without subsequent striking against object, initial encounter
CPT/HCPCS: 73560; 73562; 99283

== ENCOUNTER 2023-08-20 14:12 | Outpatient (CLI) | payer OTHER, SELFPAY ==
--- NOTE | ~2023-08-20 | MM_ITS ---
EXAMINATION: MM screening sukh BI w zachariah HISTORY: Screening mammogram TECHNIQUE: Craniocaudal and mediolateral oblique 3-D tomosynthesis images were obtained and synthetic 2-D images were generated. CAD analysis was submitted and interpreted. COMPARISON: Baseline examination. No prior mammogram is available for comparison at this institution. BREAST PARENCHYMAL COMPOSITION: There are scattered areas of fibroglandular density. FINDINGS: There are scattered bilateral small nodular opacities of the breasts. Bilateral diagnostic mammogram and bilateral breast ultrasound examination recommended. IMPRESSION: 1. Bilateral small nodular masses are suggested 2. Bilateral diagnostic mammography and breast ultrasound examination are recommended BI-RADS Category 0: Incomplete: Needs additional imaging evaluation. Reviewed, dictated and finalized at location B. IMPRESSION: 1. Bilateral small nodular masses are suggested 2. Bilateral diagnostic mammography and breast ultrasound examination are recom mended BI-RADS Category 0: Incomplete: Needs additional imaging evaluation.
== END 2023-08-20 14:13 | disposition home or self-care (01) ==
LOC: ANHIMG 14:15
PROVIDERS: PCP Nurse Practitioner Family; Visit Provider Nurse Practitioner Family
DX: Z12.31 Encounter for screening mammogram for malignant neoplasm of breast (principal); R92.8 Other abnormal and inconclusive findings on diagnostic imaging of breast
CPT/HCPCS: 77063; 77067

== ENCOUNTER 2023-09-07 10:52 | Outpatient (CLI) | payer OTHER, SELFPAY ==
--- NOTE | ~2023-09-07 | MR_ITS ---
MRI of the left knee Clinical history: MCL sprain Technique: Coronal proton density and proton density-weighted images, sagittal proton-density and T2 fat-sat images, and axial proton-density fat-saturated images were acquired. Findings: There are probable complete tears of the anterior and posterior cruciate ligaments, neither which are clearly visualized is intact structures. Probable prior orthopedic repair of the proximal MCL. MCL itself is diffusely thinned, though grossly intact. Fibular collateral ligament appears clinical program consultant nically torn at its distal aspect. Biceps femoris tendon and nearly tibial band are intact. Popliteus tendon probably intact, though somewhat poorly delineated. Posterior horn and body of the lateral meniscus are nearly completely absent, either complex tearing or prior partial meniscectomy. Anterior horn and body of the medial meniscus are essentially complete ly absent, as is the bulk of the posterior horn. Probable old, healed fracture deformity of the lateral femoral condyle. Tricompartment osteophyte for mation is present, severe at the intercondylar notch region. There is grade IV chondromalacia the pat ellar apex and medial patellar facet, with shallow femoral trochlear groove. There is diffuse high-gr omar chondromalacia the femoral trochlea. There is patchy mild to moderate chondral malacia the medial lateral compartments. Extensor mechanism is intact. Small joint effusion present. No Lucio's cyst. 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 Prior orthopedic repair at the proximal MCL. The MCL appears intact, though diffusely markedly thinne d. Probable complete chronic tear of the distal fibular collateral ligament, which is not visualized. Near complete absence of the medial meniscus, with small posterior horn remnant present. There is als o near complete absence of the posterior horn and body of the lateral meniscus. Correlate for complex tearing and/or prior meniscectomies. Moderate to severe tricompartmental osteoarthritis, as detailed above. Probable old, healed fracture deformity the lateral femoral condyle. Reviewed, dictated and finalized at location M. Impression: Probable chronic complete tears of the anterior and posterior cruciate ligament s. Prior orthopedic repair at the proximal MCL. The MCL appears intact, though dif fusely markedly thinned. Probable complete chronic tear of the distal fibular collateral ligament, which is not visualized. Near complete absence of the medial meniscus, with small posterior horn remnant present. There is also near complete absence of the posterior horn and body of the lateral meniscus. Correlate for complex tearing and/or prior meniscectomie s. Moderate to severe tricompartmental osteoarthritis, as detailed above. Probable old, healed fracture deformity the lateral femoral condyle.
== END 2023-09-07 10:53 | disposition home or self-care (01) ==
LOC: ANHIMG 10:53
PROVIDERS: PCP Nurse Practitioner Family; Visit Provider Orthopaedic Surgery
DX: S83.412A Sprain of medial collateral ligament of left knee, initial encounter (principal); M17.12 Unilateral primary osteoarthritis, left knee; M23.332 Other meniscus derangements, other medial meniscus, left knee; X58.XXXA Exposure to other specified factors, initial encounter
CPT/HCPCS: 73721

== ENCOUNTER 2023-09-13 12:29 | Outpatient (CLI) | payer OTHER, SELFPAY ==
--- NOTE | ~2023-09-13 | MMUS_ITS ---
EXAMINATION: MM diagnostic sukh BI w zachariah, US breast BI complete HISTORY: Follow-up bilateral breast masses. TECHNIQUE: Additional 3-D tomosynthesis images of the breasts were performed and synthetic 2-D images were generated. CAD analysis was submitted and interpreted. High resolution bilateral complete breas t ultrasound was performed. COMPARISON: 08/20/2023 BREAST PARENCHYMAL COMPOSITION: Not dense: There are scattered areas of fibroglandular density. FINDINGS: MAMMOGRAPHIC FINDINGS: There are multiple bilateral breast masses scattered throughout both breasts, largest in the upper ou ter quadrant of the right breast, middle third. There are no suspicious calcifications or architectur al distortion. ULTRASOUND: Complete bilateral US of all 4 quadrants of the breasts and retroareolar region was reviewed. Right breast: At 7:00 near the nipple there is a 4 mm cyst. At 10:00, 6 cm from the nipple there is a slightly lobulated parallel oriented hypoechoic 9 mm mass with mixed posterior attenuation and no in ternal vascularity. Left breast: There are multiple small simple and complicated cysts of the left breast. At 5:00, 4 cm from the nipple there is a slightly irregular shaped 4 mm mass. IMPRESSION: 1. Abnormal bilateral breast masses including a 9 mm mass of the right breast at 10:00, 6 cm from the nipple and a 4 mm mass of the left breast at 5:00, 4 cm from the nipple. 2. Bilateral ultrasound-guided breast biopsies recommended. BI-RADS category 4, suspicious findings. Reviewed, dictated and finalized at location B. IMPRESSION: 1. Abnormal bilateral breast masses including a 9 mm mass of the right breast a t 10:00, 6 cm from the nipple and a 4 mm mass of the left breast at 5:00, 4 cm from the nipple. 2. Bilateral ultrasound-guided breast biopsies recommended. BI-RADS category 4, suspicious findings.
== END 2023-09-13 12:30 | disposition home or self-care (01) ==
LOC: ANHIMG 12:29
PROVIDERS: PCP Nurse Practitioner Family; Visit Provider Nurse Practitioner Family
DX: R92.8 Other abnormal and inconclusive findings on diagnostic imaging of breast (principal); N63.11 Unspecified lump in the right breast, upper outer quadrant; N63.20 Unspecified lump in the left breast, unspecified quadrant
CPT/HCPCS: 76641; 77062; 77066; G0279

== ENCOUNTER 2023-09-17 08:35 | Outpatient (CLI) | payer OTHER, SELFPAY ==
--- NOTE | 2023-09-17 08:30 | ECG_ITS ---
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 Measurements Intervals [place] Rate: 64 P: 19 RI: 154 QRS: 54 QRSD: 93 T: 26 QT: 395 QTc: 410 Interpretive Statements SINUS RHYTHM WITH SINUS ARRHYTHMIA NORMAL ELECTROCARDIOGRAM No previous ECG available for comparison Electronically Signed On 09-17-2023 09:13:56 CDT by Gilbert Milligan M.D.
== END 2023-09-17 08:36 | disposition home or self-care (01) ==
LOC: ANHSURGERY 08:40
PROVIDERS: PCP Nurse Practitioner Family; Visit Provider Obstetrics & Gynecology
DX: E78.5 Hyperlipidemia, unspecified (principal)
CPT/HCPCS: 93005

== ENCOUNTER 2023-09-20 00:52 | Day surgery (SDC) | payer OTHER, SELFPAY ==
[2023-09-15 10:35] VITALS: BMI 36.8
--- NOTE | 2023-09-15 10:36 | PC.NURSE ---
Report to the Outpatient Waiting Room, entrance under the green pavilion located off [facility], at time _0800_ on date _[id number]_. Planned Procedure Time: _1000_. Time changes happen often and if your time is changed the preop area will call you the afternoon before. - You and your visitor will be asked to self-screen and do not enter if you have any COVID symptoms. - A mask is optional within the hospital at this time. Patients may have clear liquids (water, carbonated beverages, clear teas, apple juice) until 3 hours prior to surgery with a maximum of 20 ounces. - No food from midnight until time of surgery Take the following medications with a SIP of water the morning of surgery: ___Escitalopram DO NOT STOP ANY OF YOUR OTHER PRESCRIPTION MEDICATIONS PRIOR TO SURGERY ?EXCEPT THE FOLLOWING Medications to discontinue per physician ____None_ Date to take last dose Please no make-up, nail czech, hairspray, perfume, deodorant, or body powder the day of surgery. No jewelry (including any body piercings) or valuables the day of surgery, leave them at home. Please take a shower or bath the night before, or the morning of, surgery with an antibacterial soap. Wear comfortable, loose fitting clothing. - Jewelry must be removed prior to entering the operating room. Rings and piercings that are not removed may be cut off. - The hospital will not accept responsibility for valuables. - Please leave all valuables, including medications, at home the day of surgery. If you are going home after surgery, a licensed substitute bus driver must drive you home. - NO public transportation without another adult if you receive anesthesia. - We recommend that an adult stay with you for 24 hours following discharge. - We also recommend that you do not drive, make important decision, drink alcoholic beverages, or take any drugs that were not prescribed by your health care provider for at least 24 hours after your discharge time. Follow any additional instructions given to you from your surgeon. If you or anyone in your household have experienced Covid symptoms in the past week, please notify your surgeon or the nurse liaison at the phone number below for possible testing. Telephone instructions given to _Jeanne__and asked if any additional questions and then verbalized understanding. Patient advised to call surgeon office or pre surgery nurse liaison [phone] if any additional questions.
[2023-09-20] VITALS (8 sets, daily range): BP systolic 108–134; BP diastolic 67–89; PULSE 49–82; RESP 14–18; TEMP 36.3–36.6; O2SAT 99–100; BMI 37.9
--- NOTE | 2023-09-20 06:44 | WPDHPUPDATE1 ---
History and Physical Update Update Date/Time: 09/20/23 06:44 History and Physical has been reviewed, including an updated exam of the patient. There are NO changes in the patient's condition. Risks, benefits, and alternatives have been discussed and questions answered. Patient agrees to proceed with Right sided Bartholin's gland marsupialization.
[2023-09-20] MEDS: LACTATED RINGERS 1,000 ML 30 ML IV CONT (08:30)
--- NOTE | 2023-09-20 09:01 | WPDANESEPPF ---
Anes - Initial Pre Proc Eval Procedure: Operation Date: 09/20/23 10:00 Proposed Procedures p Marsupialization Right Bartholin Gland Cyst - Romana Ryan MD Date/Time: 09/20/23 09:01 Surgeon: Romana Ryan MD Pre Op Diagnosis: Right Bartholin Gland Cyst Patient Data Age: 43 Gender: F Height: 1.7 m Weight: 109.9 kg Allergies Allergy/AdvReac Type Severity Reaction Status Date / Time TIDE DETERGENT Allergy Mild HIVES Uncoded 09/20/23 08:39 Home Medications Medication Instructions Recorded Confirmed Type escitalopram oxalate 10 mg tablet 10 mg PO DAILY #90 tabs 08/17/23 09/15/23 Rx rosuvastatin 5 mg tablet 5 mg PO DAILY #90 tabs 08/18/23 09/15/23 Rx Patient hx anesthesia problems: none Family hx anesthesia problems: none Results Review: All pre-operative results and documents have been reviewed as part of the pre-operative evaluation. [facility] Past Medical History Medical History Anxiety Arthritis of left knee High cholesterol MCL sprain of left knee Patellar dislocation Surgical History Surgical History H/O LEEP 10/28/2020 - [place] H/O shoulder surgery History of colposcopy 10/03/2020 History of knee surgery History of laparoscopic appendectomy 03/23/20 Family History Family History Father Cerebrovascular accident COPD (chronic obstructive pulmonary disease) Alcoholism Heart disease Mother Cancer, metastatic Alcoholism Depression Social History Social History Smoking packs per day: 0.5 Smoking cigarettes per day: 10.0 Years smoked: 20 Smoking pack-years: 10.00 Smoking status: Never smoker Tobacco type: cigarettes and e-cigarettes/vaping Alcohol intake: current Drinks per week: 5 Substance use: current Substance use type: marijuana Other substance usage details: a couple times a day. 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 ) Neurological: alert and oriented Last oral intake: >/= 8 hours ASA classification: II Emergent: no Anesthesia type and monitoring: general LMA and standard monitoring Results Review: All pre-operative results and documents have been reviewed as part of the pre-operative evaluation. Informed Consent: The patient's anesthetic plan and its attendant risks and benefits were discussed with the patient/family/POA. Questions were solicited and answers provided to the satisfaction of the patient/family/POA.
[2023-09-20] MEDS: ceFAZolin 2 GM/D5W 50 ML 2 GM/50 ML BAG IVPB (10:15)
[2023-09-20] MEDS: LIDO 1%/EPINEPHRINE 1:100,000 20 ML VIAL 10 ML INFILTRATE (10:31)
--- NOTE | 2023-09-20 10:57 | W.PM.PROC2 ---
Procedure Note - Detailed Date of Procedure 09/20/23 Pre-op Diagnosis Right Bartholin Gland Cyst Post-op Diagnosis Same Procedure Performed Right Bartholin's gland Marsupialization Surgeon Romana Ryan MD Anesthesia MAC and Local (5cc of 1% lido with epi) Findings right bartholin's gland cyst, ~3-4cm in size. Dark, brown/green fluid noted inside gland. Good hemostasis at end of case. Description of Procedure Jeanne was taken to the operating room where she was placed under sedation without complications, with an LMA in place. She was then prepped and draped in the usual sterile fashion in the dorsal lithotomy position with her legs in low Kamran stirrups. A time-out was performed and she received 2g Ancef. The right Bartholin's gland was palpated and a lawrence shape skin marking was made. The tissue overlying the gland, was then infiltrated using 1% lidocaine with epinephrine. The incision was made on the marking in the overlying tissue. The gland was identified, and dark brown/green fluid was noted. The cyst wall of the Bartholin's gland was excised using Metzenbaum scissors and sent to pathology. Small blood vessels were coagulated using Bovie cautery. The skin was then reapproximated/sutured to the gland using 2-0 Vicryl in the normal fashion. Good hemostasis was noted. The area was infiltrated with additional 1% lidocaine with epinephrine for better pain control. All instruments were removed from the surgical field. Sponge, lap, instrument, and needle counts were correct at the end of the procedure. Patient was awoken from anesthesia and taken to recovery with plans of same-day discharge home. Estimated Blood Loss 30 IV Fluids 800 Pathology Yes (right bartholin's gland cyst wall) Complications No immediate complications Condition Stable Disposition Same day [facility] Billing Surgery - Charge Forward: Surgery Billing
--- NOTE | 2023-09-20 12:54 | SUR.PHASEII ---
1250: patient dressed, ready to dc, waiting on ride.
== END 2023-09-20 12:59 | disposition home or self-care (01) ==
PROVIDERS: PCP Nurse Practitioner Family; Visit Provider Obstetrics & Gynecology
PROC: (CPT 56440; principal; 2023-09-20 10:00)
DX: N75.0 Cyst of Bartholin's gland (principal); E78.00 Pure hypercholesterolemia, unspecified; F41.9 Anxiety disorder, unspecified; F17.290 Nicotine dependence, other tobacco product, uncomplicated; F17.210 Nicotine dependence, cigarettes, uncomplicated; F12.90 Cannabis use, unspecified, uncomplicated; E66.9 Obesity, unspecified; Z68.37 Body mass index [BMI] 37.0-37.9, adult
CPT/HCPCS: 56440; 88305; J0690; J2250; J2405; J2704; J3010; J7120

== ENCOUNTER 2023-09-29 09:08 | Outpatient (CLI) | payer OTHER, SELFPAY ==
--- NOTE | ~2023-09-29 | MMUS_ITS ---
MM post biopsy diagnostic RT, US breast biopsy RT w image EXAMINATION: US GUIDED NEEDLE BIOPSY WITH VACUUM ASSISTANCE DATE: 09/29/2023 11:18 CDT INDICATION: Right breast mass seen on recent examination. Ultrasound-guided core biopsy is requested to evaluate for malignancy. TECHNIQUE AND FINDINGS: Initial images of the left breast demonstrates mildly prominent ducts without discrete mass in the ar ea of previously identified sonographic concern. Six-month follow-up Limited left breast ultrasound r ecommended. The risks and potential benefits of the procedure were discussed with the patient, and written inform ed consent was obtained. After sterile preparation of the right breast, 1% lidocaine was utilized fo r local anesthesia. 1% lidocaine with epinephrine was used for deep anesthesia. A 10G vacuum-assisted biopsy gun needle was advanced through to the outer edge of the region of inter est from a superior lateral approach utilizing sonographic guidance. A total of 5 tissue core sample s were obtained through the lesion. An Inrad tissue marker clip was then placed at the biopsy site. Hemostasis was achieved. The patient tolerated procedure well and there was no evidence of immediate complication. The patien t was given verbal instructions partly is from the department. Right breast mammograms to document t issue marker clip placement. The tissue samples were submitted to surgical pathology for histologic a nalysis. IMPRESSION: 1. Successful ultrasound-guided vacuum-assisted biopsy of right breast mass with tissue marker place ment. Please refer to pathology report for histologic analysis. 2: Probable benign findings of the left breast. No discrete mass identified for biopsy. Six-month fol low-up Limited left breast ultrasound recommended. BI-RADS Category 3. Reviewed, dictated and finalized at location B. IMPRESSION: 1. Successful ultrasound-guided vacuum-assisted biopsy of right breast mass wi th tissue marker placement. Please refer to pathology report for histologic jaja lysis. 2: Probable benign findings of the left breast. No discrete mass identified for biopsy. Six-month follow-up Limited left breast ultrasound recommended. BI-RAD S Category 3.
--- NOTE | ~2023-09-29 | US_ITS ---
Please refer to biopsy report dated 09/29/2023 for details. Reviewed, dictated and finalized at location B.
== END 2023-09-29 09:09 | disposition home or self-care (01) ==
PROVIDERS: PCP Nurse Practitioner Family; Visit Provider Nurse Practitioner Family
DX: N63.10 Unspecified lump in the right breast, unspecified quadrant (principal); N63.20 Unspecified lump in the left breast, unspecified quadrant
CPT/HCPCS: 19083; 76642; 77065; 88305; A4648

== ENCOUNTER 2025-03-16 14:12 | Emergency (ER) | payer OTHER, SELFPAY ==
--- NOTE | ~2025-03-16 | XR_ITS ---
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 Findings: There is a remote appearing fracture of the proximal to mid fibula, no acute fracture is identified. Moderate degenerative changes. Soft tissues unremarkable. Impression: No acute fracture or malalignment. Reviewed, dictated and finalized at location P. E GLASS INSTALLER HELPER Impression: No acute fracture or malalignment.
--- NOTE | 2025-03-16 16:10 | ED_ITS ---
HPI - Extremity Injury (Lower) General Chief Complaint: Extremity Injury, Lower Stated Complaint: lower extremity pain, calf Time Seen by Provider: 03/16/25 16:08 Source: patient Mode of arrival: ambulatory Limitations: no limitations History of Present Illness HPI Narrative: 44 years old white female came to the ED by private car complaining of pain to left calf area after hyperflexing that leg, and heard 2 pops at the calf area. Patient denies other injuries Related Data Home Medications ?Medication ?Instructions ?Recorded ?Confirmed ?Last Taken ?Type multivit,Ca,rtf-frup-HD-caff-guarana tablet PO 5 09/12/24 Unknown History 18 mg iron-400 mcg-180 mg tablet (One-A-Day Women's Active) Allergies Allergy/AdvReac Type Severity Reaction Status Date / Time TIDE DETERGENT Allergy Mild HIVES Uncoded 09/12/24 14:16 Review of Systems Review of Systems: All systems reviewed & are unremarkable except as noted in HPI and below PMFSH Past Medical History Medical History MCL sprain of left knee Anxiety High cholesterol Patellar dislocation Arthritis of left knee Surgical History Surgical History History of gynecological procedure (09/20/23) Right Bartholin's gland Marsupialization H/O shoulder surgery History of colposcopy 10/03/2020 H/O LEEP 10/28/2020 - [place]YSIA History of laparoscopic appendectomy 03/23/20 History of knee surgery Family History Family History Father Cerebrovascular accident COPD (chronic obstructive pulmonary disease) Alcoholism Heart disease Mother Cancer, metastatic Alcoholism Depression Social History Social History Social History: 07/13/24 very confident with medical forms. Has received assistance with foot Smoking packs per day: 0.5 Smoking cigarettes per day: 10.0 Years smoked: 20 Smoking pack-years: 10.00 Smoking status: Never smoker Tobacco type: e-cigarettes/vaping Alcohol intake: current Drinks per week: 5 Substance use: current Substance use type: marijuana Other substance usage details: a couple times a day. 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 Musculoskeletal: Diffuse tenderness of the right calf area, no bruises, no swelling, no rash, negative Kade test. Neurologic: Alert and oriented ?3, MDM MDM Narrative Medical decision making narrative: Differential diagnosis strain, sprain, torn muscle of the leg, deep vein thrombosis is less likely Venous Doppler showed no blood clot. Differential Diagnosis Differential Diagnosis: As above Imaging Data Radiologist's impression: ITS Impressions Tibia/Fibula X-Ray 03/16/25 16:22 Impression: No acute fracture or malalignment. Critical Care Time Critical Care Time Critical Care Time: No Discharge Plan Discharge Clinical Impression: Leg pain, left Patient Disposition: Home Condition: Stable Instructions: Leg Pain (ED) Additional Instructions: RETURN IF SYMPTOMS ARE WORSENING , CALL YOUR FAMILY PHYSICIAN FOR APPOINTMENT, TAKE TYLENOL, IBUPROFEN NEEDED FOR ACHES AND PAIN, CONTINUE HOME MEDICATIONS. ICE PACK 20 MINUTES/HOUR FOR THE NEXT 24 HOURS NO WEIGHT BEARING IN CRUTCHES KEEP LEG ELEVATED Patient Language: Sri Lankan Prescriptions: No Action One-A-Day Women's Active 18 mg iron- 400 mcg-180 mg tablet PO escitalopram oxalate 10 mg tablet 10 mg PO DAILY Qty: 90 1RF rosuvastatin 5 mg tablet 5 mg PO DAILY Qty: 90 1RF Follow-up/Referrals: Amie Jackson APRN [Primary Care Provider, Family Practice] Stand Alone Forms: Work/School Release IP
[2025-03-16] MEDS: HYDROcodone/acetaminophen (*CRX) 5-325 MG TABLET 1 TAB PO (16:52)
== END 2025-03-16 17:01 | disposition home or self-care (01) ==
PROVIDERS: Emergency Provider Emergency Medicine; PCP Nurse Practitioner Family
DX: M79.662 Pain in left lower leg (principal); E78.00 Pure hypercholesterolemia, unspecified; M17.12 Unilateral primary osteoarthritis, left knee; F41.9 Anxiety disorder, unspecified; F17.290 Nicotine dependence, other tobacco product, uncomplicated
CPT/HCPCS: 73590; 99283; A9270